=== PATIENT | male | born 1945 | race Caucasian/White ===

== ENCOUNTER 2020-02-16 14:48 | Emergency (ER) | payer MEDICARE, BC ==
[2020-02-16] MEDS ORDERED: HYDROcodone/Acetaminophen 10/325 mg Tablet ONE ×2 (16:16→18:21)
[2020-02-16] MEDS ORDERED: Lidocaine 1% 20 ML MDV ONE (16:28)
--- NOTE | 2020-02-16 16:35 | RAD ---
Radiograph left second digit 3 views: 02/16/2020 4:26 PM HISTORY: 74-year-old male status post acute traumatic injury to left index finger FINDINGS: There is marked comminuted fractures of the proximal, mid, and distal portions of the first distal ph alanx, and mildly displaced oblique fracture of mid to distal shaft of the second middle phalanx, extending to a comminuted and displaced fracture of the head of the middle phalanx. There is a large portion of bone at the dorsal aspect of the distal phalanx which is absent, and there are overlying bandages. The PIP joint is hyperextended. No dislocation. IMPRESSION: Acute, traumatic, comminuted, and displaced fractures of the second distal phalanx and second middle phalanx.
[2020-02-16 18:03] LABS: #Basophils 0.1 thou/uL (0.0-0.2); #Lymphocytes 1.4 thou/uL (1.20-3.40); #Monocytes 0.8 thou/uL (0.11-0.59); #Neutrophils 6.7 thou/uL (1.40-6.50); %Eosinophils 0.5 % (0.0-10.0); %Lymphocytes 15.2 % (21.0-51.0); %Monocytes 9.3 % (0.0-10.0); %Neutrophils 74.1 % (42.0-75.0); Hemoglobin 14.6 g/dL (14.0-18.0); Mean Corpuscular HGB CONC 31.5 g/dL (32.0-36.0); Mean Corpuscular Hemoglobin 30.1 pg (27.0-31.0); Mean Corpuscular Volume 95.6 fL (78.0-98.0); Mean Platelet Volume 7.7 fL (7.4-10.4); Platelet Count 258 thou/uL (130-400); RBC Distribution Width 12.9 % (11.5-14.5); Red Blood Cell (RBC) Count 4.85 mill/uL (4.70-6.10); White Blood Cell (WBC) Count 9.1 thou/uL (4.8-10.8)
[2020-02-16] MEDS ORDERED: Clindamycin/D5W 900 mg/50 ml Premix Bag ONE (18:11)
[2020-02-16 18:21] LABS: ALT (SGPT) 21 U/L (8-55); AST (SGOT) 19 U/L (5-34); Albumin 3.9 g/dL (3.4-4.8); Alkaline Phosphatase 55 U/L (40-110); Anion Gap 14 mmol/L (10-20); BUN (Urea Nitrogen) 31 mg/dL (8.4-25.7); Bilirubin, Total 0.2 mg/dL (0.2-1.2); Calc. Creatinine Clearance 0 mL/min (70-130); Calcium 9.4 mg/dL (7.8-10.44); Carbon Dioxide 27 mmol/L (23-31); Chloride 104 mmol/L (98-107); Estimated GFR-MDRD 43; Globulin 2.8 g/dL (2.4-3.5); Glucose 116 mg/dL (83-110); Potassium 5.1 mmol/L (3.5-5.1); Protein, Total 6.7 g/dL (5.8-8.1); Sodium 140 mmol/L (136-145)
== END 2020-02-16 19:41 | disposition short-term general hospital (02) ==
LOC: MADERS 14:48
DX: S62.631B Displaced fracture of distal phalanx of left index finger, initial encounter for open fracture (principal); S62.621B Displaced fracture of middle phalanx of left index finger, initial encounter for open fracture; I10 Essential (primary) hypertension; W22.8XXA Striking against or struck by other objects, initial encounter
CPT/HCPCS: 36415; 80053; 85025; 96365; J1956; J3490